=== PATIENT | male | born 1995 | race Caucasian/White ===

== ENCOUNTER 2019-07-13 16:12 | Emergency (ER) | payer SELFPAY ==
[~2019-07-13] VITALS: Ht 177.8 cm; Wt 92.1 kg
[2019-07-13 16:40] VITALS: BP 108/71
[2019-07-13] MEDS: KETOROLAC 30 MG/ML VIAL IM ONE (17:55)
[2019-07-13 18:13] VITALS: BP 112/75
== END 2019-07-13 18:12 | disposition home or self-care (01) ==
LOC: MED 16:12
DX: S39.012A Strain of muscle, fascia and tendon of lower back, initial encounter (principal); M25.571 Pain in right ankle and joints of right foot; M54.41 Lumbago with sciatica, right side; V47.5XXA Car driver injured in collision with fixed or stationary object in traffic accident, initial encounter; Y93.89 Activity, other specified; Y92.411 Interstate highway as the place of occurrence of the external cause; Y99.8 Other external cause status
CPT/HCPCS: 96372; 99283; J1885